=== PATIENT | female | born 2000 | race Caucasian/White ===

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

== ENCOUNTER 2025-01-05 07:46 | Emergency (ER) | payer MEDICAID ==
[2025-01-05 08:28] LABS: #Basophils Less than 0.03 10x3/uL (0.0-0.2); #Eosinophils 0.20 10x3/uL (0.0-0.5); #Monocytes 0.63 10x3/uL (0.0-1.1); #Neutrophils 4.08 10x3/uL (1.5-8.4); %Basophils 0.1 % (0.0-2.0); %Eosinophils 2.7 % (0.0-6.0); %Lymphocytes 33.9 % (18.0-47.0); %Monocytes 8.4 % (0.0-10.0); %Neutrophils 54.8 % (40.0-75.0); Hematocrit 39.4 % (34.9-44.5); Hemoglobin 13.3 g/dL (12.0-15.5); Mean Corpuscular Hemoglobin 29.4 pg (27.0-33.0); Mean Corpuscular Volume 87.2 fL (81.6-98.3); Platelet Count 276 10x3/uL (150-450); Red Blood Cell (RBC) Count 4.52 10x6/uL (3.90-5.03); White Blood Cell (WBC) Count 7.46 10x3/uL (3.5-10.5)
[2025-01-05 08:38] LABS: Glucose, Urine (Dipstick) Normal (Negative); Leukocyte 100 (Negative); Protein, Urine (Dipstick) 30 mg/dl (Neg-Trace); Specific Gravity, Urine 1.020 (1.005-1.030)
[2025-01-05 08:50] LABS: Bacteria/HPF 4+ HPF (None Seen); CAUTI Indications for Culture Pregnancy; Mucous/LPF 3+ LPF (<2+); RBC/HPF 0-3 HPF (0-3)
[2025-01-05 08:51] LABS: Urine Culture Reflex Yes Yes
== END 2025-01-05 09:58 | disposition home or self-care (01) ==
LOC: CSHERS 07:46
DX: O20.0 Threatened abortion (principal); O20.9 Hemorrhage in early pregnancy, unspecified; O23.11 Infections of bladder in pregnancy, first trimester; O99.891 Other specified diseases and conditions complicating pregnancy; M54.50 Low back pain, unspecified; R10.20 Pelvic and perineal pain unspecified side; O99.331 Smoking (tobacco) complicating pregnancy, first trimester; F17.290 Nicotine dependence, other tobacco product, uncomplicated; Z3A.01 Less than 8 weeks gestation of pregnancy
CPT/HCPCS: 36415; 76856; 81001; 84702; 85025; 86900; 86901; 87077; 87086; 93976